=== PATIENT | female | born 1990 | race Caucasian/White ===

== ENCOUNTER 2023-05-08 18:16 | Emergency (ER) | payer OTHER ==
[~2023-05-08] VITALS: Ht 167.6 cm; Wt 105.2 kg
== END 2023-05-08 21:42 | disposition home or self-care (01) ==
LOC: ER 18:16
DX: O20.9 Hemorrhage in early pregnancy, unspecified (principal); Z3A.01 Less than 8 weeks gestation of pregnancy

== ENCOUNTER 2023-08-22 18:52 | Inpatient (IN) | payer OTHER ==
[~2023-08-22] VITALS: Ht 170.2 cm; Wt 111.6 kg
[2023-08-22] MEDS ORDERED: PRENATAL CAPLE1 EAC1 (19:00)
[2023-08-22] MEDS ORDERED: FOLIC ACID20 MG PO (19:01)
[2023-08-22 19:45] LABS: HEMATOCRIT 33.4 % (36.0-45.00); HEMOGLOBIN 11.7 g/dL (12.0-15.00); MEAN CELL VOLUME 90.2 fL (80.00-100.00); MEAN CORPUSCULAR HEMOGLOBIN 31.6 pg (27.00-32.0); MEAN CORPUSCULAR HGB CONC 35.1 g/dl (32.0-36.0); PLATELET COUNT 222 K/uL (150-450); RED BLOOD COUNT 3.71 M/uL (4.00-6.00); RED CELL DISTRIBUTION WIDTH 14.3 % (11.5-14.5)
[2023-08-22 19:46] LABS: PH,URINE 7.5 (5.0-8.0); URINE APPEARANCE Clear; URINE BILIRRUBIN Negative (NEGATIVE); URINE BLOOD Negative; URINE COLOR Yellow; URINE GLUCOSE Negative (NEGATIVE); URINE LEUKOCYTE Negative; URINE NITRATE Negative; URINE PROTEIN Trace (NEGATIVE)
[2023-08-22 19:49] LABS: URINE BACTERIA 75.5 uL (0.0-1933); URINE EPITHELIAL CELLS 4.4 uL (0.0-38.8); URINE RBC 3.1 uL (0.0-20.8); URINE WBC 13.9 uL (0.0-23.2)
[2023-08-22 20:10] LABS: ALBUMIN 2.5 gm/dL (3.4-5.0); BILIRUBIN TOTAL 0.31 mg/dL (0.3-1.2); CALCIUM 8.6 mg/dL (8.5-10.1); CREATININE SERUM 0.59 mg/dL (0.55-1.02); GFR 117.38; GLOBULINA 3.4 G/DL (2.4-3.5); POTASSIUM 4.27 mEq/L (3.5-5.1); TOTAL PROTEIN 5.9 gm/dL (6.4-8.2)
== END 2023-08-24 17:21 | disposition left against medical advice (07) | DRG 833 ==
LOC: OBS/DEL 18:52 → LDR 08-23 15:57 → OBS/DEL 08-23 15:57 → LDR 08-24 17:21
PROVIDERS: ADMIT Student in an Organized Health Care Education/Training Program; ATTEND Student in an Organized Health Care Education/Training Program
PROC: BY4FZZZ Ultrasonography of Third Trimester, Single Fetus (ICD-10-PCS; 2023-08-22)
PROC: 4A1HXCZ Monitoring of Products of Conception, Cardiac Rate, External Approach (ICD-10-PCS; principal; 2023-08-23)
DX: O47.02 False labor before 37 completed weeks of gestation, second trimester (principal); O26.892 Other specified pregnancy related conditions, second trimester; R10.2 Pelvic and perineal pain; Z3A.25 25 weeks gestation of pregnancy; Z20.822 Contact with and (suspected) exposure to COVID-19

== ENCOUNTER 2023-08-28 01:16 | Outpatient (CLI) | payer OTHER ==
[~2023-08-28 01:16] MED LIST: FOLIC ACID20 MG PO; PRENATAL CAPLE1 EAC1
== END 2023-08-28 10:12 | disposition home or self-care (01) ==
LOC: OBS/DEL 01:16
PROVIDERS: ATTEND Obstetrics & Gynecology
DX: O21.2 Late vomiting of pregnancy (principal); Z3A.26 26 weeks gestation of pregnancy